=== PATIENT | male | born 1975 | race Caucasian/White ===

== ENCOUNTER 2021-03-12 10:05 | Inpatient (IN) | payer BC ==
[2021-03-12] VITALS (7 sets, daily range): BP systolic 79–94; BP diastolic 55–70
[~2021-03-12] VITALS: Ht 188 cm; Wt 115.7 kg
[2021-03-12] MEDS ORDERED: KETOROLAC TROMETHAMINE 30 MG/ML VIAL IV STA (10:08)
[2021-03-12] MEDS ORDERED: SODIUM CHLORIDE 0.9% 1000ML 1,000 ML IV SCH ×2 (10:15→12:15)
[2021-03-12] MEDS ORDERED: FENTANYL CITRATE/PF 100MCG/2 ML INJ IV PRN ×2 (10:15→20:30)
[2021-03-12 10:37] LABS: BASOPHILS # (AUTO) 0.1 (0.0-0.1); BASOPHILS % 0.3 % (0.0-1.0); EOSINOPHILS % 0.2 % (0.0-6.0); HEMATOCRIT 51.1 % (38.2-49.6); HEMOGLOBIN 17.8 g/dL (14.0-18.0); LYMPHOCYTES # (AUTO) 1.3 (1.0-3.2); LYMPHOCYTES % 6.7 % (18.0-39.1); MEAN CORPUSCULAR HEMOGLOBIN 31.8 pg (28-32); MEAN CORPUSCULAR HGB CONC 34.8 g/dL (31-35); MEAN CORPUSCULAR VOLUME 91.3 fL (81-99); MONOCYTES # (AUTO) 1.9 (0.2-0.8); MONOCYTES % 9.8 % (4.4-11.3); NEUTROPHILS # (AUTO) 15.6 (2.1-6.9); NEUTROPHILS % 82.4 % (38.7-80.0); PLATELET COUNT 319 x10e3/uL (140-360); RED CELL DISTRIBUTION WIDTH 11.6 % (11.7-14.4)
[2021-03-12] MEDS: DEXAMETHASONE SOD PHOS 10 MG/1 ML VIAL IV SCH ×3 (11:00→23:00)
[2021-03-12] MEDS ORDERED: PIPERACILLIN/TAZOBACTAM 4.5 GM in SODIUM CHLORIDE 0.9% 100 ML IV ONE (11:00)
[2021-03-12 11:03] LABS: ANION GAP 21.2 mmol/L (8-16); CALCIUM 9.9 mg/dL (8.4-10.2); CREATININE, SERUM 0.94 mg/dL (0.72-1.25); POTASSIUM 4.2 mmol/L (3.5-5.1)
[2021-03-12] MEDS ORDERED: ONDANSETRON HCL INJ 2MG/ML 2ML 2 MG/ML VIAL IV PRN ×2 (12:15→20:30)
[2021-03-12] MEDS ORDERED: MORPHINE SULFATE INJ 2 MG/ML SYR IV PRN ×2 (12:15→20:30)
[2021-03-12] MEDS ORDERED: SODIUM CHLORIDE 0.9% 100 ML ONE (12:30)
[2021-03-12] MEDS ORDERED: PIPERACILLIN/TAZO 4.5 GM 100 ML IV ONE (12:30)
[2021-03-12] MEDS ORDERED: LIDOCAINE 1% W/EPINEPHRINE 20 ML VIAL ONE (13:29)
[2021-03-12] MEDS ORDERED: ROCURONIUM BROMIDE 10 MG/ML 5ML VIAL IV ONE (13:36)
[2021-03-12] MEDS ORDERED: PHENYLEPHRINE HCL 1% 10 MG/ML VIAL ONE (13:36)
[2021-03-12] MEDS ORDERED: SUCCINYLCHOLINE CHLORIDE 20 MG/ML 10ML VIAL ONE (13:36)
[2021-03-12] MEDS ORDERED: SEVOFLURANE INHAL SOLN 250 ML PEN BTL ONE (13:36)
[2021-03-12] MEDS ORDERED: LIDOCAINE HCL 2% LOCAL INJ 5 ML SDV VIAL INJ ONE (13:36)
[2021-03-12] MEDS ORDERED: POVIDONE IODINE 0.05% 0.05 % ML PO ONE (13:36)
[2021-03-12] MEDS ORDERED: PROPOFOL IV EMULSION 10 MG/ML 20 ML VIAL ONE ×2 (13:36→15:22)
[2021-03-12] MEDS ORDERED: PROPOFOL IV EMULSION 10MG/ML 100 ML IV STA ×3 (15:01→20:22)
[2021-03-12] MEDS ORDERED: FENTANYL CITRATE/PF 100MCG/2 ML INJ ONE ×2 (15:04→15:21)
[2021-03-12] MEDS ORDERED: MIDAZOLAM HCL 2 MG/2 ML VIAL ONE (15:04)
[2021-03-12] MEDS ORDERED: DEXAMETHASONE SOD PHOS INJ 4 MG/ML SDV ONE (17:02)
[2021-03-12] MEDS ORDERED: SODIUM CHLORIDE 0.9% 1000ML 1,000 ML ONE (17:18)
[2021-03-12] MEDS ORDERED: DEXAMETHASONE SOD PHOS INJ 4 MG/ML SDV IV SCH (18:00)
[2021-03-12] MEDS ORDERED: FENTANYL 2000MCG/NS 250 250 ML IV SCH (19:15)
[2021-03-12] MEDS ORDERED: MIDAZOLAM HCL 2 MG/2 ML VIAL IV ONE (19:40)
[2021-03-12] MEDS ORDERED: MORPHINE SULFATE INJ 4 MG/ML INJ 1ML IV PRN (20:30)
[2021-03-12] MEDS: PIPERACILLIN/TAZOBACTAM 3.375 GM in SODIUM CHLORIDE 0.9% 50ML 50 ML IV SCH (20:33)
[2021-03-12] MEDS: SODIUM CHLORIDE 0.9% 1000ML 1,000 ML IV SCH (20:35)
[2021-03-13] VITALS (17 sets, daily range): BP systolic 73–124; BP diastolic 48–82
[2021-03-13] MEDS ORDERED: PROPOFOL IV EMULSION 10MG/ML 100 ML ONE (00:36)
[2021-03-13] MEDS: PIPERACILLIN/TAZOBACTAM 3.375 GM in SODIUM CHLORIDE 0.9% 50ML 50 ML IV SCH ×4 (00:56→18:41)
[2021-03-13 01:21] LABS: ABG PH 7.31 (7.35-7.45)
[2021-03-13 01:22] LABS: ABG HCO3 25 mmol/L (22-26); ABG PCO2 50 mmHg (35-45); ABG PO2 57 mmHg (80-105); ABG TCO2 27
[2021-03-13] MEDS: SODIUM CHLORIDE 0.9% 1000ML 1,000 ML IV SCH ×5 (04:26→19:36)
[2021-03-13] MEDS: PROPOFOL IV EMULSION 10MG/ML 100 ML IV SCH (04:45)
[2021-03-13] MEDS: DEXAMETHASONE SOD PHOS 10 MG/1 ML VIAL IV SCH ×4 (05:00→23:30)
[2021-03-13 05:27] LABS: BASOPHILS % 0.2 % (0.0-1.0); HEMATOCRIT 43.5 % (38.2-49.6); LYMPHOCYTES # (AUTO) 0.8 (1.0-3.2); LYMPHOCYTES % 3.5 % (18.0-39.1); MEAN CORPUSCULAR HEMOGLOBIN 32.3 pg (28-32); MEAN CORPUSCULAR HGB CONC 34.5 g/dL (31-35); MEAN CORPUSCULAR VOLUME 93.5 fL (81-99); MONOCYTES % 4.4 % (4.4-11.3); NEUTROPHILS # (AUTO) 19.7 (2.1-6.9); NEUTROPHILS % 91.1 % (38.7-80.0); PLATELET COUNT 314 x10e3/uL (140-360); RED BLOOD COUNT 4.65 x10e6/uL (4.3-5.7)
[2021-03-13 05:51] LABS: ANION GAP 18.5 mmol/L (8-16); CALCIUM 8.4 mg/dL (8.4-10.2); CREATININE, SERUM 1.84 mg/dL (0.72-1.25); POTASSIUM 4.5 mmol/L (3.5-5.1)
[2021-03-13] MEDS ORDERED: MIDAZOLAM HCL 2 MG/2 ML VIAL IV NR (11:00)
[2021-03-13] MEDS ORDERED: ACETAMINOPHEN 325 MG TAB PO PRN (21:15)
[2021-03-14] MEDS: PIPERACILLIN/TAZOBACTAM 3.375 GM in SODIUM CHLORIDE 0.9% 50ML 50 ML IV SCH ×3 (00:05→12:35)
[2021-03-14] MEDS: PROPOFOL IV EMULSION 10MG/ML 100 ML IV SCH ×2 (00:40→10:11)
[2021-03-14] MEDS: SODIUM CHLORIDE 0.9% 1000ML 1,000 ML IV SCH ×4 (00:40→10:10)
[2021-03-14 00:50] VITALS: BP 126/85
[2021-03-14 04:00] VITALS: BP 116/73
[2021-03-14] MEDS: DEXAMETHASONE SOD PHOS 10 MG/1 ML VIAL IV SCH ×2 (05:34→11:27)
[2021-03-14 08:00] VITALS: BP 120/84
[2021-03-14 09:20] VITALS: BP 120/84
[2021-03-14] MEDS ORDERED: METRONIDAZOLE500 MG PO (11:43)
[2021-03-14] MEDS ORDERED: BACTRIM DS TAB1 EACH PO (11:44)
[2021-03-14] MEDS ORDERED: MUPIROCIN22 GM TOP (11:44)
[2021-03-14 12:00] VITALS: BP 123/77
[2021-03-14] MEDS ORDERED: PIPERACILLIN/TAZOBACTAM 3.375 GM VIAL ONE (12:33)
[2021-03-14 12:46] LABS: BASOPHILS % 0.2 % (0.0-1.0); HEMOGLOBIN 15.2 g/dL (14.0-18.0); LYMPHOCYTES % 4.8 % (18.0-39.1); MEAN CORPUSCULAR HEMOGLOBIN 32.2 pg (28-32); MEAN CORPUSCULAR HGB CONC 33.8 g/dL (31-35); MEAN CORPUSCULAR VOLUME 95.3 fL (81-99); MONOCYTES # (AUTO) 1.7 (0.2-0.8); MONOCYTES % 8.8 % (4.4-11.3); NEUTROPHILS # (AUTO) 16.9 (2.1-6.9); NEUTROPHILS % 85.3 % (38.7-80.0); PLATELET COUNT 329 x10e3/uL (140-360); RED BLOOD COUNT 4.72 x10e6/uL (4.3-5.7); RED CELL DISTRIBUTION WIDTH 12.2 % (11.7-14.4)
[2021-03-14 13:21] LABS: ANION GAP 14.8 mmol/L (8-16); CALCIUM 9.2 mg/dL (8.4-10.2); CREATININE, SERUM 0.53 mg/dL (0.72-1.25); POTASSIUM 4.8 mmol/L (3.5-5.1)
== END 2021-03-14 14:26 | disposition home or self-care (01) | DRG 137 ==
LOC: ER 10:09 → ERHOLD 12:15 → ER 13:21 → MED/SURG 15:52 → ICU 15:58 → MED/SURG 15:58 → ICU 18:35 → MED/SURG2 03-13 14:00
PROVIDERS: ADMIT Internal Medicine; ATTEND Internal Medicine
PROC: 5A1935Z Respiratory Ventilation, Less than 24 Consecutive Hours (ICD-10-PCS; 2021-03-12)
PROC: 0J910ZZ Drainage of Face Subcutaneous Tissue and Fascia, Open Approach (ICD-10-PCS; principal; 2021-03-12 10:00)
DX: K11.3 Abscess of salivary gland (principal); J95.89 Other postprocedural complications and disorders of respiratory system, not elsewhere classified; K11.20 Sialoadenitis, unspecified; E86.0 Dehydration; F17.210 Nicotine dependence, cigarettes, uncomplicated; Y83.8 Other surgical procedures as the cause of abnormal reaction of the patient, or of later complication, without mention of misadventure at the time of the procedure; Z20.822 Contact with and (suspected) exposure to COVID-19
CPT/HCPCS: 36415; 36600; 70491; 71045; 80048; 82805; 83605; 85025; 87040; 87071; 87075; 87116; 87205; 87206; 94002; 94003; 99284; C1758; J0330; J1100; J1885; J2001; J2250; J2370; J2543; J3010; J7030; J7050; U0002